=== PATIENT | male | born 1965 | race Hispanic/Latino ===

== ENCOUNTER 2018-11-08 16:49 | Emergency (ER) | payer OTHER ==
[2018-11-08 16:56] VITALS: BP 140/86; PULSE 69; RESP 18; TEMP 97.9; O2SAT 99
--- NOTE | 2018-11-08 17:48 | ED PDOC ---
HPI: Back Time Seen by Provider: 11/08/18 17:35 Chief Complaint (Nursing): Back Pain Chief Complaint (Provider): Neck Pain History Per: Patient History/Exam Limitations: no limitations Onset/Duration Of Symptoms: Days (x3) Current Symptoms Are (Timing): Better Previous Symptoms: None Additional Complaint(s): 53 y/o male presents to the ED for evaluation of neck pain. Patient reports that three days ago, while exiting his truck, his foot got stuck causing him to fall. Patient reports his head jerked back causing him to hit the pavement. At this time, patient reports of neck stiffness since the incident occurred. Patient states only hurts with movement. Patient denies taking any medications prior to arrival. Patient reports " my girlfriend made me come". Otherwise: (-) prior neck injury, (-) loss of consciousness, (-) headache, (-) dizziness, (-) fever, (-) extremity pain, (-) back pain, (-) visual changes, (-) numbness, (-) weakness, (-) nausea and (-) vomiting. PMD: Yaw Ritchie. Past Medical History Reviewed: Historical Data, Nursing Documentation, Vital Signs Vital Signs: Last Vital Signs Temp 97.9 F 11/08/18 16:53 Pulse 69 11/08/18 16:53 Resp 18 11/08/18 16:53 BP 140/86 11/08/18 16:53 Pulse Ox 99 11/08/18 16:53 - Medical History PMH: HTN Other PMH: Melanoma - Surgical History Other surgeries: Melanoma Removal - Family History Family History: States: Unknown Family Hx - Social History Alcohol: Social - Home Medications Home Medications: Ambulatory Orders Medication Instructions Recorded Amoxicillin/Clavulanate [Augmentin 1 tab PO BID #14 tab 04/11/15 875 MG-125 MG] Meloxicam [Mobic] 15 mg PO DAILY PRN #10 tab 11/08/18 Methocarbamol [Robaxin-750] 750 mg PO Q8 PRN #12 tablet 11/08/18 - Allergies Allergies/Adverse Reactions: Allergies Allergy/AdvReac Type Severity Reaction Status Date / Time No Known Allergies Allergy Verified 04/11/15 09:12 Review of Systems ROS Statement: Except As Marked, All Systems Reviewed And Found Negative Constitutional: Negative for: Fever Eyes: Negative for: Vision Change Gastrointestinal: Negative for: Nausea, Vomiting Musculoskeletal: Positive for: Neck Pain (neck stiffness). Negative for: Arm Pain, Back Pain, Hand Pain, Leg Pain Neurological: Negative for: Weakness, Numbness Physical Exam - Reviewed Nursing Documentation Reviewed: Yes Vital Signs Reviewed: Yes - Physical Exam Comments: GENERAL APPEARANCE: Patient is awake, alert, oriented x 3, in no acute distress. Resting comfortably. SKIN: Warm, dry; (-) cyanosis; (-) rash. HEAD: (-) scalp swelling or tenderness (-) palpable bony deformity EYES: (-) conjunctival pallor, (-) scleral icterus. ENMT: Airway patent, (-) stridor. Mucous membranes are moist. NECK: Supple, FROM (+) bilateral paracervical tenderness, (-) meningismus, (-) lymphadenopathy (-) palpable step-off. CHEST AND RESPIRATORY: (-) rales, (-) rhonchi, (-) wheezes; breath sounds equal bilaterally. Respirations even and nonlabored. HEART AND CARDIOVASCULAR: (-) irregularity ABDOMEN AND GI: Soft; (-) tenderness (-) guarding. EXTREMITIES: (-) deformity. NEURO AND PSYCH: Mental status as above. colon therapist: Pupils equal and reactive; EOMI and reactive; (-) facial asymmetry; tongue and uvula midline. Strength symmetric. Gait: steady. Speech: clear. - ECG O2 Sat by Pulse Oximetry: 99 (RA) Pulse Ox Interpretation: Normal Medical Decision Making Medical Decision Making: Time: 1739 Impression: Cervical strain s/p fall Plan: -- Toradol 30 mg IM -- Flexeril 10 mg PO (not driving home) --Re-evaluation 1839 On re-evaluation, patient reports improvement of symptoms. On exam, patient remains AAOx3, in no acute distress. Vitals stable. Lab/Diagnostic results d/w the patient in great detail. Diagnosis of acute neck pain, cervical strain s/p fall d/w the patient. Based on history, exam and diagnostic results, plan will be for outpatient follow up. Patient instructed to follow-up with pmd / referral provided / the clinic in 1- 2 days without fail. Advised to take medication as prescribed. Return to the emergency room at any time for any new or worsening symptoms. Patient states he fully agrees with and understands discharge instructions. States that he agrees with the plan and disposition. Verbalized and repeated discharge instructions and plan. I have given the patient opportunity to ask any additional questions. Scribe Attestation: Documented by Nataliya Hardin, acting as a scribe for Kiley Castro PA-C. Provider Scribe Attestation: All medical record entries made by the Scribe were at my direction and personally dictated by me. I have reviewed the chart and agree that the record accurately reflects my personal performance of the history, physical exam, medical decision making, and the department course for this patient. I have also personally directed, reviewed, and agree with the discharge instructions and disposition. Disposition - Clinical Impression Clinical Impression: Cervical strain, acute, Neck pain, Fall from stationary vehicle - Patient ED Disposition Is Patient to be Admitted: No Counseled Patient/Family Regarding: Studies Performed, Diagnosis, Need For Followup, Rx Given - Disposition Referrals: Patrick Yoon MD [Staff Provider] - Yaw Ritchie MD [Staff Provider] - Disposition: Routine/Home Disposition Time: 18:40 Condition: STABLE Additional Instructions: The emergency medical care you received today was directed at your acute symptom s. If you were prescribed any medication, please fill it and take as directed. It may take several days for your symptoms to resolve. Return to the Emergency Department if your symptoms worsen, do not improve, or if you have any other problems. Please contact your doctor in 2 days for re-evaluation and follow up / or call one of the physicians/clinics you have been referred to that are listed on the Patient Visit Information form that is included in your discharge packet. Bring any paperwork you were given at discharge with you along with any medications you are taking to your follow up visit. Our treatment cannot replace ongoing medical care by a primary care provider (PCP) outside of the emergency department. Prescriptions: Meloxicam [Mobic] 15 mg PO DAILY PRN #10 tab PRN Reason: Pain, Moderate (4-7) Methocarbamol [Robaxin-750] 750 mg PO Q8 PRN #12 tablet PRN Reason: Muscle Spasm Instructions: Whiplash, Neck Pain, Cervical Muscle Strain, Generalized Neck Pain (DC) Forms: [employer] ([place]) Print Language: CZECH - POA Present On Arrival: Falls Or Trauma (x3 days ago)
== END 2018-11-08 20:17 | disposition home or self-care (01) ==
LOC: H.ER 16:49
DX: S16.1XXA Strain of muscle, fascia and tendon at neck level, initial encounter (principal); W19.XXXA Unspecified fall, initial encounter; Y92.89 Other specified places as the place of occurrence of the external cause; I10 Essential (primary) hypertension; Z85.820 Personal history of malignant melanoma of skin
CPT/HCPCS: 96372; 99282; J1885